=== PATIENT | female | born 1960 | race Caucasian/White ===

== ENCOUNTER 2018-03-24 08:47 | Day surgery (SDC) | END 2018-03-24 14:48 | disposition home or self-care (01) ==

== ENCOUNTER 2018-07-07 10:43 | Day surgery (SDC) | payer OTHER ==
[2018-07-06 13:04] VITALS: Ht 167.6 cm; Wt 70.5 kg
[2018-07-07] VITALS (10 sets, daily range): BP systolic 81–107; BP diastolic 36–69; PULSE 66–76; RESP 14–30
[~2018-07-07] VITALS: Ht 167.6 cm; Wt 70.5 kg
[~2018-07-07 10:43] MED LIST: ATORVASTATIN; CALC-143 PO; FERROUS SULFATE; LAMO200T3 PO; LORA-444 PO; MIRT30TA PO; PROBIOTIC; QUET200T PO; SYN2 PO; TEMAZEPAM; TOLT4CAP13 PO; TRAZ-111 PO; ZOLPIDEM
[2018-07-07] MEDS ORDERED: LORA1TAB PO (11:23)
[2018-07-07] MEDS ORDERED: LEVO25TA50 PO (11:23)
[2018-07-07] MEDS ORDERED: TEMA15CA6 PO (11:23)
[2018-07-07] MEDS ORDERED: ATOR40TA68 PO (11:24)
[2018-07-07] MEDS ORDERED: LAMO200T2 PO (11:24)
[2018-07-07] MEDS ORDERED: QUET100T32 PO (11:25)
[2018-07-07] MEDS ORDERED: SERT100T PO (11:25)
[2018-07-07] MEDS ORDERED: TRAZ150T65 PO (11:26)
[2018-07-07] MEDS ORDERED: MIRT30TA5 PO (11:26)
[2018-07-07] MEDS ORDERED: HYDR-4012 PO (11:27)
[2018-07-07] MEDS ORDERED: FLUT1AER INHALATION (11:28)
[2018-07-07] MEDS ORDERED: DULO60CA59 PO (11:28)
[2018-07-07] MEDS ORDERED: LIDOCAINE 1% (MPF) 30 ML INJ ONE (12:58)
--- NOTE | 2018-07-07 13:00 | HPN ---
Date/Time of Note Date/Time of Note DATE: 07/07/18 TIME: 12:59 VISH JUAN MD Jul 07, 2018 13:00
--- NOTE | 2018-07-07 13:04 | PREAC ---
Date/Time of Note Date/Time of Note DATE: 07/07/18 TIME: 13:02 Anesthesia Eval and Record Evaluation Time Pre-Procedure Interview DATE: 07/07/18 TIME: 13:02 Age 57 Sex female NPO: 8 hrs Preoperative diagnosis lumbar disc herniation and stenosis Planned procedure lumbar epidural injection under fluoroscopy Past Medical History Past Medical History: Includes Cardio: Dyslipidemia Endo: Hypothyroid Pulm: COPD Surgery & Anesthesia Issues No known issue Meds Anticoagulation: No Beta Brendon within 24 hr: No Reason Beta Brendon not given: Pt. not on B-Brendon Reported Medications Fluticasone-Vilanterol (Breo Ellipta Inhaler) 100-25 Mcg/Actuation Aer.pow.ba, 1 PUFF INHALATION DAILY, #1 INHALER 07/07/18 Duloxetine Hcl* (Duloxetine Hcl*) 60 Mg Capsule.dr, 60 MG PO DAILY, #30 CAP 07/07/18 Hydrocodone/Acetaminophen ([place] 7.5-325 Tablet) 1 Each Tablet, 1 EACH PO TID PRN for PAIN, TAB 07/07/18 Mirtazapine* (Mirtazapine*) 30 Mg Tablet, 30 MG PO DAILY, TAB 07/07/18 Trazodone Hcl* (Desyrel*) 150 Mg Tablet, 150 MG PO BID, #60 TAB 07/07/18 Sertraline Hcl* (Zoloft*) 100 Mg Tablet, 100 MG PO DAILY, #30 TAB 07/07/18 Quetiapine Fumarate* (Quetiapine Fumarate*) 100 Mg Tablet, 100 MG PO BID, TAB 07/07/18 Atorvastatin* (Atorvastatin*) 40 Mg Tablet, 40 MG PO QHS, #30 TAB 07/07/18 Lamotrigine* (Lamotrigine*) 200 Mg Tablet, 200 MG PO BID, TAB 07/07/18 Levothyroxine Sodium* (Levoxyl*) 25 Mcg Tablet, 25 MCG PO BEFORE BREAKFAST, #30 TAB 07/07/18 Lorazepam* (Lorazepam*) 1 Mg Tablet, 1 MG PO BID PRN for ANXIETY, #30 TAB 07/07/18 Temazepam* (Restoril*) 15 Mg Capsule, 15 MG PO HS PRN for INSOMNIA, CAP 07/07/18 Discontinued Reported Medications [Probiotic] No Conflict Check 03/24/18 Calcium Citrate/Vitamin D (Citracal-Vitamin D 200 MG-250) 1 Each Tablet, 1 EACH PO BID, TAB 03/24/18 [Ferrous Sulfate] No Conflict Check 03/24/18 Tolterodine Tartrate* (Tolterodine Tartrate* ER) 4 Mg Cap.er.24h, 4 MG PO DAILY, #30 CAP 03/24/18 [Zolpidem] No Conflict Check 03/24/18 [Temazepam] No Conflict Check 03/24/18 [Atorvastatin] No Conflict Check 03/24/18 Mirtazapine* (Remeron*) 30 Mg Tablet, 60 MG PO HS, TAB 09/08/14 Quetiapine Fumarate* (Seroquel*) 200 Mg Tablet, 200 MG PO HS, TAB 09/08/14 Levothyroxine Sodium* (Synthroid*) 200 Mcg Tablet, 200 MCG PO AC BREAKFAST, TAB 09/08/14 Lorazepam* (Ativan*) 2 Mg Tablet, 2 MG PO HS, TAB 09/08/14 Trazodone Hcl* (Trazodone Hcl*) 50 Mg Tablet, 150 MG PO HS, TAB 09/08/14 Lamotrigine* (Lamictal*) 200 Mg Tablet, 200 MG PO HS, TAB 09/08/14 Meds reviewed: Yes Allergies Coded Allergies: aspirin (Verified Allergy, Unknown, UPSETS STOMACH, 07/07/18) Allergies Reviewed: Yes Labs/Studies Labs Reviewed: Reviewed by anesthesiologist Result Diagram: 07/07/18 1235 Laboratory Tests 07/07/18 12:35 test: Negative Pre-procedure Exam Airway: Adequate mouth opening, Adequate thyromental dist Mallampati: Mallampati II Teeth: Normal Lung: Normal Heart: Normal ASA Physical Status ASA physical status: 3 Emergency: None Planned Anesthetic General/MAC: MAC Planned Pain Management Parenteral pain med Pre-operative Attestations Prior to commencing anesthesia and surgery, the patient was re-evaluated, there was verification of: *The patient's identity *The results of appropriate recent lab work and preoperative vital signs *The above evaluation not changing prior to induction *Anesthetic plan, risk benefits, alternative and complications discussed with patient/family; questions answered; patient/family understands, accepts and wishes to proceed. Jose Arguelles M.D. Jul 07, 2018 13:04
[2018-07-07] MEDS ORDERED: MEPERIDINE 25 MG INJ IV PRN (13:30)
[2018-07-07] MEDS ORDERED: hydrALAzine 20 MG INJ IV PRN (13:30)
[2018-07-07] MEDS ORDERED: LABETALOL HCL 20MG INJ IV PRN (13:30)
[2018-07-07] MEDS ORDERED: FENTAnyl 50 MCG/ML VIAL IV PRN ×3 (13:30)
[2018-07-07] MEDS ORDERED: IPRATROPIUM (NEB) 0.5 MG/2.5 ML AMP HHN PRN (13:30)
[2018-07-07] MEDS ORDERED: DIPHENHYDRAMINE 50 MG INJ IV PRN (13:30)
[2018-07-07] MEDS ORDERED: OXYCODONE/ACETAMINOPHEN (5/325) TAB PO PRN ×2 (13:30)
[2018-07-07] MEDS ORDERED: HYDROmorphONE 1 MG/5 ML IV SYRINGE IV PRN ×3 (13:30)
[2018-07-07] MEDS ORDERED: TRIMETHOBENZAMIDE 100 MG/ML VIAL IM PRN (13:30)
[2018-07-07] MEDS ORDERED: ONDANSETRON 4 MG INJ IV PRN (13:30)
[2018-07-07] MEDS ORDERED: ALBUTEROL 0.083% (NEB) 2.5 MG/3 ML AMP HHN PRN (13:30)
[2018-07-07] MEDS ORDERED: MIDAZOLAM 1 MG/ML 2 ML INJ IV PRN (13:30)
[2018-07-07] MEDS ORDERED: EPHEDrine SULFATE 50 MG/5 ML SYG IV PRN (13:30)
[2018-07-07] MEDS ORDERED: PROPOFOL 20 ML ONE (13:32)
[2018-07-07] MEDS ORDERED: MIDAZOLAM 1 MG/ML 2 ML INJ ONE (13:32)
[2018-07-07] MEDS ORDERED: METHYLPREDNISOLONE ACET 40 MG/ML 1 ML INJ ONE ×2 (13:38→14:21)
--- NOTE | 2018-07-07 13:55 | OPR ---
Date/Time of Note Date/Time of Note DATE: 07/07/18 TIME: 13:53 Operative Report Preoperative Diagnosis spinal stenosis Postoperative Diagnosis same Operation/Procedure Performed lumbar epidural steroid injection Surgeon see signature line Rn Pacu none Anesthesia Type: MAC Estimated Blood Loss: minimal Transfusion none Specimen none Grafts/Implants none Complications none Pt Condition Post Procedure: stable Procedure Description lumbar epidural steroid injection VISH JUAN MD Jul 07, 2018 13:55
[2018-07-07] MEDS ORDERED: METHYLPREDNISOLONE ACET 40 MG/ML 1 ML INJ SCH (14:00)
--- NOTE | 2018-07-08 08:54 | OPR ---
DATE OF OPERATION: 07/07/2018 PREOPERATIVE DIAGNOSES: Lumbar disk herniation, stenosis, radiculopathy. POSTOPERATIVE DIAGNOSES: Lumbar disk herniation, stenosis, radiculopathy. OPERATION PERFORMED: 1. Lumbar epidural steroid injection. 2. Interpretation of intraoperative fluoroscopy x-ray. ANESTHESIA: MAC. ESTIMATED BLOOD LOSS: None. COMPLICATIONS: None. DESCRIPTION OF PROCEDURE: The patient is taken to the operating room and placed in the decubitus pos ition. Intravenous sedation provided by anesthesia. C-arm brought over the lumbar spine. Under x-r ay visualization the L4-L5 level was identified. Back prepped with ChloraPrep. A 22-gauge 3-/2 inc h spinal needle was introduced using the loss of resistance technique. No CSF or blood aspirated. 8 0 mg Depo-Medrol and 1 mL of 1% Xylocaine injected without complication. The patient tolerated the p rocedure well and was taken to recovery room in stable condition. Dictated By: VISH HUFFMAN/EDD Conf#: [id number] DID#: [id number] CC: VISH JUAN MD;*EndCC*
--- NOTE | 2018-07-08 15:15 | RADRPT ---
Vent Rate: 71 bpm RR Interval: 0 msec TX Interval: 164 msec QRS Duration: 82 msec QT Interval: 386 msec QTC Interval: 419 msec P-R-T [place]: 17 - -14 - 48 degrees Normal sinus rhythm Normal ECG Electronically Signed By: Cj Aguila
== END 2018-07-07 15:25 | disposition home or self-care (01) ==
LOC: SDS 10:43
PROVIDERS: ATTEND Specialist
DX: M51.16 Intervertebral disc disorders with radiculopathy, lumbar region (principal); E78.5 Hyperlipidemia, unspecified; E03.9 Hypothyroidism, unspecified; J44.9 Chronic obstructive pulmonary disease, unspecified
CPT/HCPCS: 62323; 71045; 72020; 80048; 85025; 85610; 85730; 93005; J1030; J1170; J2250

== ENCOUNTER 2018-07-31 17:02 | Emergency (ER) | payer OTHER ==
[~2018-07-31] VITALS: Wt 69.1 kg
[~2018-07-31 17:02] MED LIST changes: +ATOR40TA68 PO; -ATORVASTATIN; -CALC-143 PO; +DULO60CA59 PO; -FERROUS SULFATE; +FLUT1AER INHALATION; +HYDR-4012 PO; +LAMO200T2 PO; -LAMO200T3 PO; +LEVO25TA50 PO; -LORA-444 PO; +LORA1TAB PO; -MIRT30TA PO; +MIRT30TA5 PO; -PROBIOTIC; +QUET100T32 PO; -QUET200T PO; +SERT100T PO; -SYN2 PO; +TEMA15CA6 PO; -TEMAZEPAM; -TOLT4CAP13 PO; -TRAZ-111 PO; +TRAZ150T65 PO; -ZOLPIDEM
[2018-07-31 17:15] VITALS: BP 141/64; PULSE 89; RESP 18
[2018-07-31] MEDS ORDERED: HYDROCODONE/APAP (5/325) TAB PO ONE (18:30)
[2018-07-31] MEDS ORDERED: HYDR-4011 PO (19:09)
--- NOTE | 2018-07-31 19:12 | ERD ---
ER Documentation Chief Complaint Chief Complaint RIGHT ANKLE PAIN FROM ROLLING IT THIS MORNING, NO DEFORMITY HPI 57-year-old female rolled her right foot this morning and complains of pain in the right lateral foot area. She has no restricted range of motion set mildly due to pain. She has no deficits, bleeding or discharge or lacerations. ROS All systems reviewed and are negative except as per history of present illness. Medications Home Meds Active Scripts Hydrocodone/Acetaminophen ([place] 5-325 Tablet) 1 Each Tablet, 1 TAB PO Q6H PRN for PAIN, #10 TAB Prov:OSVALDO DUBOIS MD 07/31/18 Reported Medications Fluticasone-Vilanterol (Breo Ellipta Inhaler) 100-25 Mcg/Actuation Aer.pow.ba, 1 PUFF INHALATION DAILY, #1 INHALER 07/07/18 Duloxetine Hcl* (Duloxetine Hcl*) 60 Mg Capsule.dr, 60 MG PO DAILY, #30 CAP 07/07/18 Hydrocodone/Acetaminophen ([place] 7.5-325 Tablet) 1 Each Tablet, 1 EACH PO TID PRN for PAIN, TAB 07/07/18 Mirtazapine* (Mirtazapine*) 30 Mg Tablet, 30 MG PO DAILY, TAB 07/07/18 Trazodone Hcl* (Desyrel*) 150 Mg Tablet, 150 MG PO BID, #60 TAB 07/07/18 Sertraline Hcl* (Zoloft*) 100 Mg Tablet, 100 MG PO DAILY, #30 TAB 07/07/18 Quetiapine Fumarate* (Quetiapine Fumarate*) 100 Mg Tablet, 100 MG PO BID, TAB 07/07/18 Atorvastatin* (Atorvastatin*) 40 Mg Tablet, 40 MG PO QHS, #30 TAB 07/07/18 Lamotrigine* (Lamotrigine*) 200 Mg Tablet, 200 MG PO BID, TAB 07/07/18 Levothyroxine Sodium* (Levoxyl*) 25 Mcg Tablet, 25 MCG PO BEFORE BREAKFAST, #30 TAB 07/07/18 Lorazepam* (Lorazepam*) 1 Mg Tablet, 1 MG PO BID PRN for ANXIETY, #30 TAB 07/07/18 Temazepam* (Restoril*) 15 Mg Capsule, 15 MG PO HS PRN for INSOMNIA, CAP 07/07/18 Allergies Allergies: Coded Allergies: aspirin (Verified Allergy, Unknown, UPSETS STOMACH, 07/31/18) PMhx/Soc History of Surgery: Yes (X3 [place]) Anesthesia Reaction: No Hx Neurological Disorder: No Hx Respiratory Disorders: Yes (COPD, EMPHESYMA. ON 02, ) Hx Cardiac Disorders: No Hx Psychiatric Problems: No Hx Miscellaneous Medical Probl: No Hx Alcohol Use: No (PT STAT USE TO) Hx Substance Use: No Hx Tobacco Use: Yes Smoking Status: Former smoker FmHx Family History: No diabetes, No coronary disease, No other Physical Exam Vitals Vital Signs Date Temp Pulse Resp B/P (MAP) Pulse Ox O2 O2 Flow FiO2 Time Delivery Rate 07/31/18 98.2 89 18 141/64 98 17:15 (89) Physical Exam Const: No acute distress Head: Atraumatic Eyes: Normal Conjunctiva ENT: Normal External Ears, Nose and Mouth. Neck: Full range of motion. No meningismus. Resp: Clear to auscultation bilaterally Cardio: Regular rate and rhythm, no murmurs Abd: Soft, non tender, non distended. Normal bowel sounds Skin: No petechiae or rashes Back: No midline or flank tenderness Ext: No cyanosis, or edema. Tenderness primarily around the base of the right fifth metatarsal area with slight bruising. She has no erythema, warmth, deformities, restricted range of motion or deficits. Neur: Awake and alert Psych: Normal Mood and Affect Results 24 hrs Current Medications Medications Dose Sig/Joseline Start Time Status Last (Trade) Ordered Route PRN Stop Time Admin Dose Reason Admin 1 tab ONCE ONCE 07/31/18 DC 07/31/18 Acetaminophen PO 18:30 18:34 / 07/31/18 18:31 Hydrocodone Bitart ([place] (5/325)) Procedures/MDM X-ray right foot 3V Interpreted by me: Bones: Avulsion fracture of the base of the right fifth metatarsal. Joints: No dislocation Foreign body: None. Impression-avulsion of the right fifth metatarsal base. She was placed in a right lower extremity walking boot and was neurovascular intact at the boot. She has crutches at home. Patient was discharged home with recommendations for orthopedic and primary care follow-up and return precautions for fevers, redness, new or worsening symptoms. There is no current signs or symptoms of ischemia, deficits or infection. The patient was stable with no new complaints during the ER course. Clinically, there is no current evidence to suggest meningitis, sepsis, acute abdomen, pneumonia, stroke, acute coronary syndrome, pulmonary embolism, aortic dissection or any other emergent condition appearing to require further evaluation or hospitalization. Patient counseled regarding my diagnostic impression and care plan. Prior to discharge all questions answered. Pt agrees with treatment plan and understands strict return precautions. Pt is instructed to follow up with primary care provider within 24- 48 hours. Precautionary instructions provided including instructions to return to the ER if not improving or for any worsening or changing symptoms or concerns. Disclaimer: Inadvertent spelling and grammatical errors are likely due to EHR/dictation software use and do not reflect on the overall quality of patient care. Also, please note that the electronic time recorded on this note does not necessarily reflect the actual time of the patient encounter. Departure Diagnosis: Primary Impression: Fracture of foot Encounter type: initial encounter Fracture type: closed Laterality: right Qualified Codes: S92.901A - Unspecified fracture of right foot, initial encounter for closed fracture Condition: Stable Patient Instructions: Fracture, Foot Referrals: MYRTLE WEBER MD [facility] Hours: Fri-Fri 9:00 AM - 5:00 PM Additional Instructions: Fracture seen in area of pain. See orthopedist for further evaluation treatment. May need authorization from primary doctor for orthopedist visit. OSVALDO DUBOIS MD Jul 31, 2018 19:12
== END 2018-07-31 20:26 | disposition home or self-care (01) ==
LOC: FTE 17:02
DX: S92.901A Unspecified fracture of right foot, initial encounter for closed fracture (principal); J44.9 Chronic obstructive pulmonary disease, unspecified; X58.XXXA Exposure to other specified factors, initial encounter; Y92.9 Unspecified place or not applicable; Z87.891 Personal history of nicotine dependence
CPT/HCPCS: 73630

== ENCOUNTER 2018-09-21 09:03 | Day surgery (SDC) | payer OTHER ==
[~2018-09-21] VITALS: Ht 165.1 cm; Wt 73.2 kg
[2018-09-21] VITALS (7 sets, daily range): BP systolic 113–129; BP diastolic 61–76; PULSE 76–90; RESP 10–19; Ht 165.1 cm; Wt 73.2 kg
[~2018-09-21 09:03] MED LIST changes: +HYDR-4011 PO
[2018-09-21] MEDS ORDERED: NAPR220C2 PO (10:00)
[2018-09-21] MEDS ORDERED: CALC-133 PO (10:00)
[2018-09-21] MEDS ORDERED: FER325 PO (10:00)
[2018-09-21] MEDS ORDERED: ZOLP10TA PO (10:00)
[2018-09-21] MEDS ORDERED: TOLT2TAB13 PO (10:00)
[2018-09-21] MEDS ORDERED: ONDA4TAB95 PO (10:00)
[2018-09-21] MEDS ORDERED: LACTATED RINGER'S 1,000 ML IV SCH (10:00)
[2018-09-21] MEDS ORDERED: ASPI-826 PO (10:00)
[2018-09-21] MEDS ORDERED: LORA1TAB PO (10:00)
[2018-09-21] MEDS ORDERED: COCAINE 4% 4 ML TOP ONE (11:21)
[2018-09-21] MEDS ORDERED: BACITRACIN/POLYMYXIN 28.35 GM OINT TOP ONE (11:21)
--- NOTE | 2018-09-21 11:21 | PREAC ---
Date/Time of Note Date/Time of Note DATE: 09/21/18 TIME: Anesthesia Eval and Record Evaluation Time Pre-Procedure Interview DATE: 09/21/18 TIME: :19 Age 57 Sex female NPO: 8 hrs Preoperative diagnosis deviated septum, turbinate hypertrophy Planned procedure laser turbinoplasty Past Medical History Past Medical History: Includes Pulm: COPD Surgery & Anesthesia Issues No known issue Meds Anticoagulation: No Beta Brendon within 24 hr: No Reason Beta Brendon not given: Pt. not on B-Brendon Reported Medications Naproxen* (Aleve*) 220 Mg Capsule, 220 MG PO BID, #60 CAP 09/21/18 Aspirin/Acetaminophen/Caffeine (Excedrin Extra Strength Caplet) 1 Each Tablet, 1 TAB PO BID, TAB 09/21/18 Lorazepam* (Lorazepam*) 1 Mg Tablet, 1 MG PO BID PRN for ANXIETY, #30 TAB 09/21/18 Ondansetron Hcl* (Ondansetron Hcl*) 4 Mg Tablet, 4 MG PO Q4H PRN for NAUSEA AND OR VOMITING, TAB 09/21/18 Calcium Carbonate/Vitamin D3 (Oyster Shell Calcium +D Tablet) 1 Each Tablet, 1 TAB PO DAILY, TAB 09/21/18 Zolpidem Tartrate* (Ambien*) 10 Mg Tablet, 10 MG PO QHS PRN for INSOMNIA, TAB 09/21/18 Tolterodine Tartrate* (Detrol*) 2 Mg Tablet, 4 MG PO BID, #60 TAB 09/21/18 Ferrous Sulfate* (Ferrous Sulfate*) 325 Mg Tabec, 325 MG PO BID, TAB 09/21/18 Duloxetine Hcl* (Duloxetine Hcl*) 60 Mg Capsule.dr, 60 MG PO DAILY, #30 CAP 07/07/18 Mirtazapine* (Mirtazapine*) 30 Mg Tablet, 15 MG PO QHS, TAB 07/07/18 Trazodone Hcl* (Desyrel*) 150 Mg Tablet, 300 MG PO QHS, #60 TAB 07/07/18 Quetiapine Fumarate* (Quetiapine Fumarate*) 100 Mg Tablet, 200 MG PO QHS, TAB 07/07/18 Atorvastatin* (Atorvastatin*) 40 Mg Tablet, 20 MG PO QHS, #30 TAB 07/07/18 Lamotrigine* (Lamotrigine*) 200 Mg Tablet, 400 MG PO QHS, TAB 07/07/18 Levothyroxine Sodium* (Levoxyl*) 25 Mcg Tablet, 25 MCG PO BEFORE BREAKFAST, #30 TAB 07/07/18 Temazepam* (Restoril*) 15 Mg Capsule, 15 MG PO HS PRN for INSOMNIA, CAP 07/07/18 Discontinued Reported Medications Fluticasone-Vilanterol (Breo Ellipta Inhaler) 100-25 Mcg/Actuation Aer.pow.ba, 1 PUFF INHALATION DAILY, #1 INHALER 07/07/18 Hydrocodone/Acetaminophen ([place] 7.5-325 Tablet) 1 Each Tablet, 1 EACH PO TID P RN for PAIN, TAB 07/07/18 Sertraline Hcl* (Zoloft*) 100 Mg Tablet, 100 MG PO DAILY, #30 TAB 07/07/18 Lorazepam* (Lorazepam*) 1 Mg Tablet, 1 MG PO BID PRN for ANXIETY, #30 TAB 07/07/18 Discontinued Scripts Hydrocodone/Acetaminophen ([place] 5-325 Tablet) 1 Each Tablet, 1 TAB PO Q6H PRN for PAIN, #10 TAB Prov:OSVALDO DUBOIS MD 07/31/18 Current Medications Lactated Ringer's 1,000 ml @ 25 mls/hr Q24H IV Last administered on 09/21/18at 09:47; Admin Dose 25 MLS/HR; Start 09/21/18 at 10:00 Meds reviewed: Yes Allergies Coded Allergies: aspirin (Verified Allergy, Unknown, UPSETS STOMACH, 09/21/18) Allergies Reviewed: Yes Labs/Studies Labs Reviewed: Reviewed by anesthesiologist test: N/A Studies: ECG, CXR Pre-procedure Exam Last vitals Vital Signs Date Temp Pulse Resp B/P (MAP) Pulse Ox O2 O2 Flow FiO2 Time Delivery Rate 09/21/18 98.5 82 16 122/72 93 Room Air 09:39 (89) Airway: Adequate mouth opening, Adequate thyromental dist Mallampati: Mallampati II Teeth: Normal Lung: Normal Heart: Normal ASA Physical Status ASA physical status: 3 Emergency: None Planned Anesthetic General/MAC: ETT Planned Pain Management Parenteral pain med Pre-operative Attestations Prior to commencing anesthesia and surgery, the patient was re-evaluated, there was verification of: *The patient's identity *The results of appropriate recent lab work and preoperative vital signs *The above evaluation not changing prior to induction *Anesthetic plan, risk benefits, alternative and complications discussed with patient/family; questions answered; patient/family understands, accepts and wishes to proceed. RAYNE LOVELACE Sep 21, 2018 11:21
[2018-09-21] MEDS ORDERED: LIDOCAINE 1%/EPI 30 ML INJ ONE (11:23)
[2018-09-21] MEDS ORDERED: PROPOFOL 20 ML ONE ×3 (11:53→12:15)
[2018-09-21] MEDS ORDERED: ROCURONIUM 50 MG INJ ONE (11:55)
[2018-09-21] MEDS ORDERED: FENTAnyl 50 MCG/ML VIAL ONE (11:55)
[2018-09-21] MEDS ORDERED: LIDOCAINE 2% (SDV) 5 ML INJ ONE (11:55)
--- NOTE | 2018-09-21 11:56 | HPN ---
Date/Time of Note Date/Time of Note DATE: 09/21/18 TIME: 11:56 Interval H&P Admission Note Pt. seen H&P reviewed: No system changes SAMMI ELLIS M.D. Sep 21, 2018 11:56
[2018-09-21] MEDS ORDERED: DEXAMETHASONE 4 MG/ML 5 ML INJ ONE (12:07)
[2018-09-21] MEDS ORDERED: ONDANSETRON 4 MG INJ ONE (12:09)
[2018-09-21] MEDS ORDERED: CEFAZOLIN 1 GM INJ ONE (12:15)
[2018-09-21] MEDS ORDERED: NEOSTIGMINE 3 MG/3 ML SYRINGE ONE (12:49)
[2018-09-21] MEDS ORDERED: GLYCOPYRROLATE 0.4 MG INJ ONE (12:49)
--- NOTE | 2018-09-21 12:56 | OPR ---
Date/Time of Note Date/Time of Note DATE: 09/21/18 TIME: 12:52 Operative Report Procedure Date: Sep 21, 2018 Preoperative Diagnosis 1. CHRONIC NASAL OBSTRUCTION. 2. SEPTAL DEVIATION. 3. BILATERAL NASAL TURBINATE TISSUE HYPERTROPHY. Postoperative Diagnosis SAME. Operation/Procedure Performed 1. SEPTOPLASTY USING SMR TECHNIQUE. 2. BILATERAL LASER KTP 532 NM NASAL TURBINOPLASTY VIA SMR. Surgeon see signature line [employer] NONE. Anesthesia Type: general (WITH OT TUBE INTUBATION. TOPICAL 4% 4 CC COCCAINE SOLN, 20 CC 1% LIDOCAINE WITH EPI 1:100,000 SOLN) Estimated Blood Loss: 10 - 50 ml's Transfusion none Specimen SEPTAL CARTILAGE. Grafts/Implants none Tubes/Drains NONE. Complications none Pt Condition Post Procedure: stable Disposition: PACU Indications TO IMPROVE BREATHING. Procedure Description SEE DICTATED OPERATIVE REPORT. SAMMI ELLIS M.D. Sep 21, 2018 12:56
--- NOTE | 2018-09-21 12:58 | PDOCDIS ---
Discharge Instructions DIAGNOSIS Discharge Diagnosis 1. CHRONIC NASAL OBSTRUCTION. 2. SEPTAL DEVIATION. 3. BILATERAL NASAL TURBINATE TISSUE HYPERTROPHY. CONDITION [id number] Patient Condition: [id number] Good HOME CARE INSTRUCTIONS: [id number] Diet Instructions: [id number] Regular ACTIVITY: [id number] Activity Restrictions: Vnrae8e Slowly Increase Activity Rest between Activity Avoid heavy lifting Avoid Heavy Housework [id number] Bathing Restrictions: [id number] Tub Bath FOLLOW UP/APPOINTMENTS Follow-up Plan MY OFFICE IN 7 TO 10 DAYS. SCHOOL/WORK RELEASE May return to School/Work on: Sep 28, 2018 May return to School/Work with: No Restrictions SAMMI ELLIS M.D. Sep 21, 2018 12:58
--- NOTE | 2018-09-21 13:03 | PAC ---
Date/Time of Note Date/Time of Note DATE: 09/21/18 TIME: 13:02 Post-Anesthesia Notes Post-Anesthesia Note Last documented vital signs Vital Signs Date Temp Pulse Resp B/P (MAP) Pulse Ox O2 O2 Flow FiO2 Time Delivery Rate 09/21/18 98.5 82 16 122/72 93 Room Air 1302 (89) Activity: WNL Respiratory function: WNL Cardiovascular function: WNL Mental status: Baseline Pain reasonably controlled: Yes Hydration appropriate: Yes Nausea/Vomiting absent: Yes RAYNE LOVELACE Sep 21, 2018 13:03
[2018-09-21] MEDS: FENTAnyl 50 MCG/ML VIAL IV PRN ×4 (13:07→13:26)
[2018-09-21] MEDS ORDERED: MIDAZOLAM 1 MG/ML 2 ML INJ IV PRN (13:30)
[2018-09-21] MEDS ORDERED: ONDANSETRON 4 MG INJ IV PRN (13:30)
[2018-09-21] MEDS ORDERED: OXYCODONE/ACETAMINOPHEN (5/325) TAB PO PRN ×2 (13:30)
[2018-09-21] MEDS ORDERED: MEPERIDINE 25 MG INJ IV PRN (13:30)
[2018-09-21] MEDS ORDERED: hydrALAzine 20 MG INJ IV PRN (13:30)
[2018-09-21] MEDS ORDERED: EPHEDrine 25 MG/5 ML SYG IV PRN (13:30)
[2018-09-21] MEDS ORDERED: FENTAnyl 50 MCG/ML VIAL IV PRN (13:30)
[2018-09-21] MEDS ORDERED: METOCLOPRAMIDE 10 MG INJ IV PRN (13:30)
[2018-09-21] MEDS ORDERED: LABETALOL HCL 20MG INJ IV PRN (13:30)
[2018-09-21] MEDS ORDERED: morphine 2 MG INJ IV PRN ×2 (13:30)
[2018-09-21] MEDS ORDERED: ALBUTEROL 0.083% (NEB) 2.5 MG/3 ML AMP HHN PRN (13:30)
[2018-09-21] MEDS ORDERED: DIPHENHYDRAMINE 50 MG INJ IV PRN (13:30)
--- NOTE | 2018-09-21 14:55 | OPR ---
DATE OF OPERATION: 09/21/2018 SURGEON: Placido Monique MD PREOPERATIVE DIAGNOSES: 1. Septal deviation. 2. Bilateral nasal turbinate tissue hypertrophy. 3. Bilateral chronic nasal obstruction. POSTOPERATIVE DIAGNOSES: 1. Septal deviation. 2. Bilateral nasal turbinate tissue hypertrophy. 3. Bilateral chronic nasal obstruction. OPERATION PERFORMED: 1. A septoplasty using submucosal resection technique. 2. Bilateral laser turbinoplasty procedure using 532 nanometer laser using submucosal resection tech nique. ESTIMATED BLOOD LOSS: Approximately 20 mL. COMPLICATIONS: No complications. SPECIMENS SENT TO LAB: Septal cartilage for gross identification. INDICATIONS: Ms. Betty Pal is a 57-year-old female who has a history of chronic nasal obstruction with the use of oxygen for underlying pulmonary disease. The patient has had chronic nasal obstruct ion with difficulties breathing, failed topical nasal steroid treatments. The patient is currently s cheduled for today's procedure which includes a septoplasty procedure for deviated septum and for tur binate reduction for her turbinates. She has understood the risks, benefits and alternatives of toda y's procedure to include infections, bleeding, possible failure of procedure as well as possible reac tion to general and local anesthetic agents given. She has signed consent once her questions were an swered. FINDINGS DURING PROCEDURE: Right nasal septal deviation with bilateral turbinate tissue hypertrophy. There are papillomatous degenerative mucosal changes of the inferior turbinates. ANESTHETIC USED: General anesthesia with orotracheal tube intubation. The patient also had topical cocaine 4% using 4 mL, as well as 20 mL of 1% lidocaine with epinephrine 1:100,000 using 25-gauge 1-1 /2 length needle. The patient was also given antibiotic before the case was begun. The patient left the operating room in good and satisfactory condition, extubated to the recovery room. DESCRIPTION OF PROCEDURE: The patient was as follows. The patient taken to the operating room, formerly [facility] ed on the surgical table in supine position, made comfortable by the anesthesiologist. The patient h ad EKG, saturation monitor and blood pressure cuff applied. The patient started IV in the preinducti on area which was infusing well. The patient was given IV sedation and her air was then maintained a nd controlled. The patient was then successfully orotracheally intubated with orotracheal tube witho ut any complications. Tube was taped to the left corner of the mouth. The eyes were taped for prote ction. At this point, table was left in the midline as a brief time-out with patient identification and procedures entertained, and all were in agreement. At this point, the patient was draped out in usual sterile fashion using split sheet and towels, after a light Betadine scrub to the face area. A t this point, the patient's vital signs continued to be stable as all personnel in the operating room were asked to place safety goggles on for their protection. At this point, the nasal cavity was ins pected. The patient was found to have right anterior septal deviation. There is also swelling of th e turbinates bilaterally. There are no signs of polyps or malignancy seen. At this point, the nose was injected using 1% lidocaine with epinephrine 1:100,000 using 25-gauge 1-2 needle into the infer ior turbinates, the septum, floor of the nose and along the lateral dorsum of the nose. Cocaine was then placed inside the nose on cottonoids to the anterior ethmoid behind the middle turbinate areas. At this point, time was allowed for maximal effect of this medication as the cottonoids were then re moved from the nasal cavity. A KTP 532 nanometer laser was then made ready at 8 lua continuous pow er using a straight hand-held handpiece with suction attachment. At this point, under direct visuali zation, the left inferior turbinate was reduced in the submucosal space using a stabbing technique in a posterior direction. The inferior turbinate was then outfractured toward the medial wall of the m axillary sinus, to give greater patency of the nasal cavity. The right side was done in a similar fa shion, the inferior turbinate on the right side also had papillomatous degenerative mucosal changes n oted. Both turbinates were then reduced to submucosal space and lateralized toward the medial wall a nd maxillary sinus. The middle turbinate was also reduced in the submucosal space. They too were la teralized toward the medial wall of the maxillary sinus as well. This ended the laser portion of the procedure as the wet towels placed around the nose were then removed. At this point, a septoplasty procedure performed by creating a hemitransfixion incision on the left side of the nose and the anter ior septal margin. This was done with a #15 [employer] sharp stainless steel blade down through the underlying mucosa and to the perichondrium. A mucoperichondrial flap was elevated with a Helga lisa vator with care not to tear the flaps. The hemitransfixion incision was then completed to the right side as the Placer elevator was advanced to the right side to elevate a mucoperichondrial flap on the right side as well. Again, care was taken not to tear the flaps as the cartilage between the flaps which was deviated was removed with Argenis forceps. This allowed the septum to swing back toward the midline as the hemitransfixion incision was closed using 4-0 Vicryl suture in simple interrupted fashion. Plication suture was then applied to the septum to keep it in the midline to prevent hemato ma formation. This was also done with 4-0 Vicryl suture. This nasal cavity was suctioned of blood-t inged secretions with a Dunaway suction before it was packed with bacitracin ointment, placed inside the nose to catch drainage. A mustache dressing placed beneath the nose also to catch any drainage. The patient tolerated the procedure well. The sponge counts and instrument count were correct x3. There were no complications during the procedure. The patient was then extubated in the operating ro om, taken to recovery room, expects to be discharged home unless postoperative complications develop. Dictated By: PLACIDO ROMO/EDD Conf#: [id number] DID#: [id number]
== END 2018-09-21 14:45 | disposition home or self-care (01) ==
LOC: SDS 09:03
PROVIDERS: ATTEND Otolaryngology Otolaryngology/Facial Plastic Surgery
DX: J34.2 Deviated nasal septum (principal); J34.3 Hypertrophy of nasal turbinates; J44.9 Chronic obstructive pulmonary disease, unspecified
CPT/HCPCS: 30140; 30520; 88300; J0690; J1100; J2405; J2710; J3010